=== PATIENT | male | born 1985 | race American Indian/Alaskan Native ===

== ENCOUNTER 2018-08-08 00:55 | Emergency (ER) | payer OTHER ==
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
[2018-08-08] MEDS ORDERED: BENADRYL PO ONE (04:15)
[2018-08-08] MEDS ORDERED: FLEXERIL PO ONE (04:15)
[2018-08-08] MEDS ORDERED: TORADOL IM ONE (04:15)
[2018-08-08] MEDS ORDERED: DECADRON IM ONE (04:15)
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
[2018-08-08 05:29] VITALS: BP 115/81
== END 2018-08-08 05:31 | disposition home or self-care (01) ==
LOC: ED 00:55
DX: S16.1XXA Strain of muscle, fascia and tendon at neck level, initial encounter (principal); R51 Headache; V89.2XXA Person injured in unspecified motor-vehicle accident, traffic, initial encounter; Y93.89 Activity, other specified; Y92.410 Unspecified street and highway as the place of occurrence of the external cause; Y99.8 Other external cause status
CPT/HCPCS: 73030; 96372; 99283; J1100; J1885